=== PATIENT | male | born 1960 | race Caucasian/White ===

== ENCOUNTER 2021-10-14 10:17 | Emergency (ER) | payer OTHER ==
[~2021-10-14] VITALS: Ht 170.2 cm; Wt 81.2 kg
[2021-10-14] MEDS ORDERED: NITROGLYCERIN SUBLINGUAL 0.4 MG BOTTLE OF 25. SL PRN (10:45)
[2021-10-14 11:20] LABS: BASO # 0.1 x10^3/uL (0.0-0.2); BASO % 1 % (0-3); EOS # 0.1 x10^3/uL (0.0-0.7); EOS % 2 % (0-3); HEMOGLOBIN 16.9 g/dL (13.0-17.5); LYMPH # 1.6 x10^3/uL (1.0-4.8); LYMPH % 29 % (24-48); MEAN CORPUSCULAR HEMOGLOBIN 33 pg (25-35); MEAN CORPUSCULAR HGB CONC 33 g/dL (31-37); MEAN CORPUSCULAR VOLUME 99 fL (79-100); MONO # 0.4 x10^3/uL (0.0-1.1); MONO % 8 % (0-9); NEUT # 3.3 x10^3uL (1.8-7.7); NEUT % 59 % (31-73); PLATELET COUNT 169 x10^3/uL (140-400); RED BLOOD COUNT 5.16 x10^6/uL (4.30-5.70); RED CELL DISTRIBUTION WIDTH 12.4 % (11.5-14.5); WHITE BLOOD COUNT 5.6 x10^3/uL (4.0-11.0)
--- NOTE | 2021-10-14 11:24 | RAD ---
Examination: CT head without contrast and CT angiography head and neck with IV contrast. COMPARISON: None available History: Altered mental status TECHNIQUE: Axial CT images of the head was performed without contrast. Axial CT angiographic images o f the head and neck were performed with IV contrast. Coronal and sagittal 3-D MIP reformats are perfo rmed. 3-D Volumetric reformats of the carotids and [place] of [place] were performed. Exposure: One or more of the following individualized dose reduction techniques were utilized for [facility] examination: 1. Automated exposure control 2. Adjustment of the mA and/or kV according to patient size 3. Use of iterative reconstruction technique Stenosis calculations for CT, MR, and conventional angiography are based upon measurements of the dis yary ICA diameter in accordance with the NASCET methodology. Stenosis calculations for carotid ultraso und studies are derived from validated velocity criteria which are known to correlate with the NASCET methodology. CT HEAD INDICATION: Reason: AMS / Spl. Instructions: / History: COMPARISON: None Available. Exposure: One or more of the following individualized dose reduction techniques were utilized for [facility] examination: 1. Automated exposure control 2. Adjustment of the mA and/or kV according to patient size 3. Use of iterative reconstruction technique TECHNIQUE: 5 mm contiguous axial images were obtained from the skull base to the vertex in both bone and soft tissue algorithm. FINDINGS: No abnormal attenuation within the brain parenchyma. No evidence of acute intracranial hemorrhage. No extra-axial fluid collections. No mass effect or midline shift. Ventricular size is appropriate. Basal cisterns are patent. No fractures identified.Redmond-white differentiation is preserved.Globes and orbits are within normal l imits. Paranasal sinuses and mastoid air cells are clear. The origin of the great vessels from the arch of the aorta grossly appears unremarkable. The bilatera l common carotid arteries, bilateral internal carotid arteries are patent. The bilateral middle cereb ral arteries, anterior cerebral arteries, posterior cerebral arteries are patent. The bilateral verte bral arteries, basilar artery is patent. Mild atherosclerotic calcifications identified in the bilate ral cavernous internal carotid arteries. Moderate degenerative changes cervical spine. IMPRESSION: 1. No acute intracranial findings. 2. No evidence of occlusive thrombus identified in the visualized arteries of the head and neck. FOR INTERNAL CODING PURPOSES Critical result: Findings discussed with ER physician at 10/14/2021 11:15 AM. RESULT CODE: (C) Electronically signed by: Jose Spear MD (10/14/2021 11:21 AM) [id number]
--- NOTE | 2021-10-14 11:24 | EKG ---
[address] [address] Test Date: 2021-10-14 Test Time: 10:54:23 Pat Name: DICK NOLASCO Department: Room: Gender: M Sales Merchandiser: AMANDEEP : 1960 Requested By: GRACY SHETTY Order Number: [id number] Reading MD: Stanley Argueta MD Measurements Intervals [place] Rate: 105 P: 36 [place]: 160 QRS: 22 QRSD: 78 T: 31 QT: 332 QTc: 443 Interpretive Statements SINUS TACHYCARDIA Electronically Signed On 10-14-2021 13:37:01 CONCRETE BLOCK MOLDER by Stanley Argueta MD
[2021-10-14 11:26] LABS: CALCIUM 8.5 mg/dL (8.5-10.1); CREATININE 0.9 mg/dL (0.7-1.3); GFR 86.4; POTASSIUM 3.7 mmol/L (3.5-5.1)
--- NOTE | 2021-10-14 11:38 | PHYS DOC ---
Past History Past Medical History: Depression, Hypertension (GRACY SHETTY MAIL TECHNICIAN) Past Surgical History: No Surgical History (GRACY SHETTY MAIL TECHNICIAN) Alcohol Use: None (GRACY SHETTY MAIL TECHNICIAN) Adult General Chief Complaint Chief Complaint: ALTERED MENTAL STATUS [facility] HPI Patient is a 61-year-old male patient with a history of hypertension, depression who presents to the ED today to be evaluated for confusion that began at 0950 after having intercourse with the . Patient states he was not able to remember the grand son's had a birthday that he attended yesterday. He states now he can remember everything very well. Denies any headache, fever, chest pain or shortness of breath. His blood pressure is elevated in the ED, he states he stopped taking his blood pressure medicine 2 months ago because he felt he does not need it (ISRAGRACY Corea MAIL TECHNICIAN) Review of Systems Review of Systems Constitutional: Denies fever or chills [] Eyes: Denies change in visual acuity, redness, or eye pain [] HENT: Denies nasal congestion or sore throat [] Respiratory: Denies cough or shortness of breath [] Cardiovascular: No additional information not addressed in HPI [] GI: Denies abdominal pain, nausea, vomiting, bloody stools or diarrhea [] : Denies dysuria or hematuria [] Musculoskeletal: Denies back pain or joint pain [] Integument: Denies rash or skin lesions [] Neurologic: Reports confusion. Denies headache, focal weakness or sensory changes [] All other systems were reviewed and found to be within normal limits, except as documented in this note. (ISRAAnmolGRACY Babak MAIL TECHNICIAN) Current Medications Current Medications Current Medications Medications (Trade) Dose Ordered Sig/[facility] Start Time Stop Time Status Last Admin Dose Admin Nitroglycerin (Nitrostat) 0.4 mg PRN Q5MIN PRN 10/14/21 10:45 (GRACY SHETTY MAIL TECHNICIAN) Allergies Allergies Allergies Coded Allergies Type Severity Reaction Last Updated Verified No Known Drug Allergies 10/14/21 No (GRACY SHETTY MAIL TECHNICIAN) Physical Exam Physical Exam Constitutional: Well developed, well nourished, no acute distress, non-toxic appearance. [] HENT: Normocephalic, atraumatic, bilateral external ears normal, oropharynx moist, no oral exudates, nose normal. [] Eyes: PERRLA, EOMI, conjunctiva normal, no discharge. [] Neck: Normal range of motion, no tenderness, supple, no stridor. [] Cardiovascular:Heart rate regular rhythm, no murmur [] Lungs & Thorax: Bilateral breath sounds clear to auscultation [] Abdomen: Bowel sounds normal, soft, no tenderness, no masses, no pulsatile masses. [] Skin: Warm, dry, no erythema, no rash. [] Back: No tenderness, no CVA tenderness. [] Extremities: No tenderness, no cyanosis, no clubbing, ROM intact, no edema. [] Neurologic: Alert and oriented X 3, normal motor function, normal sensory function, no focal deficits noted. Cranial nerves II through XII intact Psychologic: Affect normal, judgement normal, mood normal. [] (SENAGRACY MAIL TECHNICIAN) Current Patient Data Vital Signs Vital Signs Date Time Temp Pulse Resp B/P (MAP) Pulse Ox O2 Delivery O2 Flow Rate FiO2 10/14/21 11:23 99 16 195/105 (135) 99 Room Air 10/14/21 10:28 98.5 Lab Results Laboratory Tests Test 10/14/21 11:00 White Blood Count 5.6 x10^3/uL (4.0-11.0) Red Blood Count 5.16 x10^6/uL (4.30-5.70) Hemoglobin 16.9 g/dL (13.0-17.5) Hematocrit 51.0 % (39.0-53.0) Mean Corpuscular Volume 99 fL (79-100) Mean Corpuscular Hemoglobin 33 pg (25-35) Mean Corpuscular Hemoglobin Concent 33 g/dL (31-37) Red Cell Distribution Width 12.4 % (11.5-14.5) Platelet Count 169 x10^3/uL (140-400) Neutrophils (%) (Auto) 59 % (31-73) Lymphocytes (%) (Auto) 29 % (24-48) Monocytes (%) (Auto) 8 % (0-9) Eosinophils (%) (Auto) 2 % (0-3) Basophils (%) (Auto) 1 % (0-3) Neutrophils # (Auto) 3.3 x10^3uL (1.8-7.7) Lymphocytes # (Auto) 1.6 x10^3/uL (1.0-4.8) Monocytes # (Auto) 0.4 x10^3/uL (0.0-1.1) Eosinophils # (Auto) 0.1 x10^3/uL (0.0-0.7) Basophils # (Auto) 0.1 x10^3/uL (0.0-0.2) Sodium Level 137 mmol/L (136-145) Potassium Level 3.7 mmol/L (3.5-5.1) Chloride Level 103 mmol/L (98-107) Carbon Dioxide Level 25 mmol/L (21-32) Anion Gap 9 (6-14) Blood Urea Nitrogen 12 mg/dL (8-26) Creatinine 0.9 mg/dL (0.7-1.3) Estimated GFR (Cockcroft-Gault) 86.4 BUN/Creatinine Ratio 13 (6-20) Glucose Level 113 mg/dL (70-99) H Calcium Level 8.5 mg/dL (8.5-10.1) Magnesium Level Pending Total Bilirubin Pending Aspartate Amino Transferase (AST) Pending Alanine Aminotransferase (ALT) Pending Alkaline Phosphatase Pending Creatine Kinase Pending Creatine Kinase MB (Mass) Pending Creatine Kinase MB Relative Index Pending Total Protein Pending Albumin Pending Albumin/Globulin Ratio Pending Ethyl Alcohol Level < 10 mg/dL (0-10) (GRACY SHETTY MAIL TECHNICIAN) EKG EKG [address] Santiago sinus tachycardia HR 105 no STEMI [] (GRACY SHETTY MAIL TECHNICIAN) Radiology/Procedures Radiology/Procedures []PROCEDURE: CT CODE STROKE HEAD WO Examination: CT head without contrast and CT angiography head and neck with IV contrast. COMPARISON: None available History: Altered mental status TECHNIQUE: Axial CT images of the head was performed without contrast. Axial CT angiographic images of the head and neck were performed with IV contrast. Coronal and sagittal 3-D MIP reformats are performed. 3-D Volumetric reformats of the carotids and [place] of [place] were performed. Exposure: One or more of the following individualized dose reduction techniques were utilized for this examination: 1. Automated exposure control 2. Adjustment of the mA and/or kV according to patient size 3. Use of iterative reconstruction technique Stenosis calculations for CT, MR, and conventional angiography are based upon measurements of the distal ICA diameter in accordance with the NASCET methodology. Stenosis calculations for carotid ultrasound studies are derived from validated velocity criteria which are known to correlate with the NASCET methodology. CT HEAD INDICATION: Reason: AMS / Spl. Instructions: / History: COMPARISON: None Available. Exposure: One or more of the following individualized dose reduction techniques were utilized for this examination: 1. Automated exposure control 2. Adjustment of the mA and/or kV according to patient size 3. Use of iterative reconstruction technique TECHNIQUE: 5 mm contiguous axial images were obtained from the skull base to the vertex in both bone and soft tissue algorithm. FINDINGS: No abnormal attenuation within the brain parenchyma. No evidence of acute intracranial hemorrhage. No extra-axial fluid collections. No mass effect or midline shift. Ventricular size is appropriate. Basal cisterns are patent. No fractures identified.Redmond-white differentiation is preserved.Globes and orbits are within normal limits. Paranasal sinuses and mastoid air cells are clear. The origin of the great vessels from the arch of the aorta grossly appears unremarkable. The bilateral common carotid arteries, bilateral internal carotid arteries are patent. The bilateral middle cerebral arteries, anterior cerebral arteries, posterior cerebral arteries are patent. The bilateral vertebral arteries, basilar artery is patent. Mild atherosclerotic calcifications identified in the bilateral cavernous internal carotid arteries. Moderate degenerative changes cervical spine. IMPRESSION: 1. No acute intracranial findings. 2. No evidence of occlusive thrombus identified in the visualized arteries of the head and neck. FOR INTERNAL CODING PURPOSES Critical result: Findings discussed with ER physician at 10/14/2021 11:15 AM. RESULT CODE: (C) Electronically signed by: Jose Spear MD (10/14/2021 11:21 AM) [id number] DICTATED AND SIGNED BY: JOSE SPEAR MD DATE: 10/14/21 1117 CC: GRACY SHETTY APRN; MARTHA VENTURA ~MTH0 0 (GRACY SHETTY APRN) Heart Score C/O Chest Pain: N/A Risk Factors: Risk Factors: DM, Current or recent (<one month) smoker, HTN, HLP, family history of CAD, obesity. Risk Scores: Risk Factors: DM, Current or recent (<one month) smoker, HTN, HLP, family history of CAD, obesity. (GRACY SHETTY APRN) Course & Med Decision Making Course & Med Decision Making Pertinent Labs and Imaging studies reviewed. (See chart for details) This is a 61-year-old male patient presenting to the ED today to be evaluated for confusion that began at 950 in the morning. Patient was not able to remember the grandson's birthday celebration that was held yesterday. He arrives in the ED alert and oriented x4 and states he can remember everything now. Blood pressure notably to the ED was 204/123 with a heart rate of 108, history of hypertension, supposed to be on blood pressure medicine but he states he stopped taking medicines months ago, no headache. No chest pain. NIHSS is negative CT of the head, CT head neck angiography negative. Labs are negative for any acute findings. UA is negative Patient is currently alert oriented times [address] Lennon, he requested patient to be discharged home and follow-up with his clinic on Friday which is tomorrow (GRACY SHETTY APRN) Course & Med Decision Making I was the Attending physician on the above date of service of this patient. This patient was evaluated, examined, treated, and dispositioned from the emergency department by the mid-level practitioner. I reviewed case with ENGRAVING SUPERVISOR, NIH stroke scale 0, no indication for TPA. I agree with decision to contact neurology who ultimately recommended close outpatient follow-up and treatment of blood pressure that significantly improved with ER intervention and continued mo nitoring Electronically signed, Cornelio Santiago DO (CORNELIO SANTIAGO DO) Rose Disclaimer Rose Disclaimer This electronic medical record was generated, in whole or in part, using a voice recognition dictation system. (GRACY SHETTY APRN) NIH Stroke Scale: NIH Stroke Scale Response (Comments) Value Level of Consciousness: 0 Alert/Responsive 0 LOC Questions: 0 Answers both correctly 0 LOC Commands: 0 Performs both tasks 0 Best Gaze: 0 Normal 0 Visual: 0 No visual loss 0 Facial Palsy: 0 Normal, symmetrical 0 Motor - Left Arm 0 No drift 0 Motor - Right Arm 0 No drift 0 Motor - Left Leg 0 No drift 0 Motor: Right Leg 0 No drift 0 Limb Ataxia: 0 Absent 0 Sensory: 0 No loss 0 Best Language: 0 Normal 0 Dysathria: 0 Normal 0 Extinction and Inattention: 0 Normal 0 Total 0 Departure Departure: Impression: Primary Impression: TIA (transient ischemic attack) Additional Impression: Accelerated hypertension Disposition: HOME / SELF CARE / HOMELESS Condition: STABLE Referrals: MARTHA VENTURA (PCP) SU LENNON MD call him tomorrow and set up a follow up appointment Patient Instructions: Transient Ischemic Attack Additional Instructions: You were evaluated in the emergency room. Your CT of the head is negative, your CT angio of the head and neck is also negative for any acute findings. Your lab work is negative for any acute findings. Your blood pressure is running high, ensure you start taking your blood pressure medicines right away. Please contact Dr. Lennon's office the neurologist tomorrow morning and set up a follow- up appointment with him. Come back to the ED at any point symptoms recur Scripts Amlodipine Besylate (AMLODIPINE BESYLATE) 10 Mg Tablet 1 TAB PO DAILY, #14 TAB Prov: GRACY SHETTY APRN 10/14/21 Problem Qualifiers GRACY SHETTY APRN Oct 14, 2021 11:38 CORNELIO SANTIAGO DO Oct 16, 2021 06:57
[2021-10-14 11:41] LABS: ALBUMIN 3.6 g/dL (3.4-5.0); TOTAL BILIRUBIN 1.2 mg/dL (0.2-1.0); TOTAL PROTEIN 7.2 g/dL (6.4-8.2)
--- NOTE | 2021-10-14 11:42 | RAD ---
Chest AP portable at 1123: Reason for examination: Altered mental status. The heart size is normal. Mediastinum is unremarkable. Lung jenkins are clear. No acute bony abnormali ties are seen. Impression: No acute cardiopulmonary disease. Electronically signed by: Chrissie Lopez MD (10/14/2021 11:40 AM) [id number]
[2021-10-14 11:55] LABS: BACTERIA,URINE 0 /HPF (0-FEW); BILIRUBIN,URINE NEG (NEG); CLARITY,URINE CLEAR; COLOR,URINE YELLOW; GLUCOSE,URINE NEG (NEG); NITRITE,URINE NEG (NEG); SQUAMOUS EPITHELIAL CELL,UR OCC /LPF; UROBILINOGEN,URINE 0.2 mg/dL (0.2 mg/dL); WBC,URINE 0 /HPF (0-4)
[2021-10-14 11:56] LABS: BARBITURATES NEG (NEG); BENZODIAZEPINES NEG (NEG); CANNABINOIDS NEG (NEG); COCAINE NEG (NEG); METHADONE NEG (NEG); OPIATES NEG (NEG); PHENCYCLIDINE NEG (NEG)
[2021-10-14 11:59] LABS: AMPHETAMINE/METHAMPHETAMINE NEG (NEG)
[2021-10-14] MEDS ORDERED: IOHEXOL 350 MG/ML 100 ML VIAL. IV ONE (12:30)
[2021-10-14] MEDS ORDERED: CONTRAST GIVEN. MC PRN (12:30)
[2021-10-14] MEDS ORDERED: AMLO-187 PO (13:42)
[2021-10-14] MEDS ORDERED: LABETALOL 20 MG/4 ML DISP.SYRIN. IVP ONE (13:45)
[2021-10-14 14:02] VITALS: BP 145/97
== END 2021-10-14 14:10 | disposition home or self-care (01) ==
LOC: ER 10:17
DX: G45.8 Other transient cerebral ischemic attacks and related syndromes (principal); I10 Essential (primary) hypertension; F32.9 Major depressive disorder, single episode, unspecified
CPT/HCPCS: 36415; 70450; 70496; 70498; 71045; 80053; 80307; 81001; 82553; 83735; 84443; 84484; 85025; 85379; 85610; 85730; 93005; 96374; 99285; G0480; J3490; Q9967